=== PATIENT | male | born 1975 | race Caucasian/White ===

== ENCOUNTER → 2020-12-31 | Outpatient (REF) ==
--- NOTE | 2020-12-31 14:52 | REP ---
INDICATION: [facility] COMPARISON: None. TECHNIQUE: Internal rotation, external rotation, and Y view. FINDINGS: No acute fracture or dislocation. The acromioclavicular and glenohumeral joints are intact. No periarticular calcifications or degenerative changes are appreciated. Sub acromial space is normal. Surrounding soft tissues are unremarkable. IMPRESSION: Normal age-appropriate left shoulder radiographs. <Electronically signed by Wiliam Key > 12/31/20 1943
--- NOTE | 2020-12-31 15:07 | REP ---
INDICATION: [facility] COMPARISON: None. TECHNIQUE: AP, lateral, coned-down views of the lumbar spine. FINDINGS: Alignment and lordosis maintained. No acute fracture/compression injury or subluxation. Osteophytosis noted at L4-5 and to a lesser extent L3-4. Remainder of the examination is normal including normal disc spaces. IMPRESSION: 1. Osteophytosis at L4-5 and L3-4. 2. Otherwise essentially normal examination. <Electronically signed by Wiliam Key > 12/31/20 [id number]
== END ==
LOC: M RAD 14:22
PROVIDERS: ATTEND Internal Medicine
DX: M25.78 Osteophyte, vertebrae (principal); M25.512 Pain in left shoulder